=== PATIENT | male | born 1950 | race Caucasian/White ===

== ENCOUNTER 2023-06-21 15:21 | Inpatient (IN) ==
[2023-06-21] MEDS ORDERED: ONDANSETRON INJ 2 MG/ML 2 ML VIAL IV STA (15:51)
[2023-06-21] MEDS ORDERED: SODIUM CHLORIDE 0.9% 1000ML 1,000 ML IV ONE ×2 (15:51→20:19)
[2023-06-21] MEDS ORDERED: MoRPHine SULFATE 4 MG/ML 1 ML CARP\\VIAL IV STA ×3 (15:51→21:45)
--- NOTE | 2023-06-21 16:17 | Emergency Department Note ---
Impression & Plan Diverticulitis large intestine ED Provider Note Provider: Tony Saldivar MD DATE OF SERVICE: 06/21/2023 CHIEF COMPLAINT: Lower abdominal pain, constipation HISTORY OF PRESENT ILLNESS: Patient is a 72-year-old gentleman history of GERD, previously treated hepatitis C, hypertension, CAD, emphysema presenting here today reporting over the past 8 days has been experiencing increasing pain in l eft lower quadrant with constipation issues. States has been trying to have a bowel movement but only a bit of clear liquid comes out. States low bit of blood on the toilet paper. Denies significant blood per rectum otherwise. Maybe a bit of transient nausea but no significant vomiting reported. No other upper abdominal pain the pain all in the left lower quadrant. Denies significant trauma. Has been doing some physical exertion and exercise recently. Report unfortunately given the warm weather his psoriasis and plaques are flaring. States he does not feel that he is hydrating as best as he could. Denies significant shortness of breath or chest pain. States he has had diverticulitis in the past and has had a polyp removed on colonoscopy previously. Pain is just too unbearable for him so he came here today. Was planning to talk with his doctor when they open tomorrow. Distant prior appendectomy decades ago. Patient did try a bit of manual disimpaction earlier but could not feel any firm stool in the rectal vault only reports that it felt a bit swollen. PAST MEDICAL HISTORY: As noted above MEDICATIONS: Reviewed home medications SOCIAL HISTORY: Lives at home taking care of granddaughter PHYSICAL EXAM: GENERAL: alert and oriented in no acute distress on stretcher Head: normocephalic and atraumatic EYES: No injection, discharge or icterus. NECK: Trachea midline. ENT: Mucous membranes pink and moist. LUNGS: Airway patent. No retractions. Breath sounds clear with good air entry bilaterally. HEART: Regular rate and rhythm. No chest wall tenderness ABDOMEN: Soft with moderate tenderness in the left lower quadrant tenderness. SKIN: Acyanotic, warm, dry, with scattered areas of scaling plaques consistent with psoriasis throughout the body but particularly the low back region as well as extremities. EXTREMITIES: Without swelling, tenderness or deformity except for psoriasis plaques NEUROLOGICAL: No focal deficits. No aphasia. No facial droop or slurred speech. Ambulatory. EK bpm normal sinus rhythm. No PVC or PAC. No acute ST segment elevation or depression with QTc 454. CONTINUOUS CARDIAC MONITORING: was ordered and showed a heart rate of 70s-80s bpm in normal sinus rhythm Patient's laboratory studies and imaging reviewed. Differential includes Appendicitis, testicular torsion, infections, diverticulitis, UTI, obstruction, mesenteric ischemia, aortic pathology, inflammatory bowel disease, renal colic, PUD, pancreatitis, biliary pathology, hernia, volvulus, constipation, as well as other pathologies. IMPRESSION/MEDICAL DECISION MAKING: Patient with tenderness left lower quadrant. Constipation reported. Some blood in the toilet paper does not sound like significant GI bleeding. Prior colonoscopy appears to been just over a year ago with polyp removal at that time. On aspirin but no other blood thinners. No significant trauma reported. Basic labs obtained. Question if he is experiencing the constipation, divertic ulitis, or other bowel related pathology. This seems quite atypical for kidney stone. Denies significant other GI complaints. Seems to have fairly diffuse psoriasis but will continue to follow-up in the outpatient setting regarding this. Given some morphine here initially for pain as well as some IV fluids. EKG on troponin sent. Troponin just above normal at 22 and given symptoms I doubt this is ACS and seems more chronic. No evidence of hepatitis or pancreatitis. Normal renal function. Electrolytes without significant abnormality. Blood work with leukocytosis 15.6. CT imaging per radiology with evidence of perforated diverticulitis with early abscess formation. No evidence of any distant free air/pneumoperitoneum reported. Discussed with radiology reports abscess does not appear that walled off and is may be 3-4 cm in size irregular. Discussed with general surgery Dr. Allen. Discussed with the patient with recommendation for IV antibiotics and treatment. He was agreeable for this. Hospitalist contacted. DIAGNOSIS: Perforated diverticulitis with abscess DISPOSITION: Hospitalist will evaluate Patient was agreeable with this plan. Past Med/Surg History Medical History Atherosclerosis of aorta Calculus of gallbladder without cholecystitis without obstruction Coronary artery calcification Dyslipidemia Fatty liver Hepatic steatosis Hepatitis C Hypertension Low back pain Primary osteoarthritis, unspecified site PTSD (post-traumatic stress disorder) Stricture of artery Tobacco abuse Unspecified fall Unspecified viral hepatitis C without hepatic coma Social History Smoking Status: Current every day smoker Do You Dip or Chew Tobacco: No; Hx Alcohol Use: No Hx Substance Use: No Preferred Language: [place] Feels Safe at Home: Yes Allergies Allergies Allergy/AdvReac Type Severity Reaction Status Date / Time Penicillins Allergy Intermediate Hives Verified 01/23/23 10:32 ibuprofen AdvReac Unknown HAS LIVER Verified 01/23/23 10:32 DAMAGE--AVOIDS THIS MED. Home Meds Home Medications Medication Instructions Recorded Confirmed metoprolol tartrate 50 mg tablet 50 mg PO BID 10/18/21 06/21/23 aspirin 81 mg tablet,delayed 325 mg PO DAILY 11/17/22 06/21/23 release Previous Rx's Medication Instructions Recorded amlodipine 5 mg tablet 5 mg PO DAILY #90 tabs 12/09/21 Results & Data (ED) Vital Signs Vital Signs - 24 hr 06/21/23 15:30 06/21/23 17:10 06/21/23 19:00 Temperature 36.7 C Temperature Source Temporal Artery Scan Pulse Rate 90 Pulse Rate [Left Finger] 77 77 Pulse Rhythm Regular Pulse Rhythm [Left Finger] Regular Pulse Strength Normal Pulse Strength [Left Finger] Normal Respiratory Rate 20 20 18 Respiratory Effort / Characteristics Non-Labored Spontaneous Non-Labored Respiratory Depth Normal Normal Respiratory Pattern Regular Regular Blood Pressure 144/79 H Blood Pressure [Right Arm] 160/86 H 150/67 H Blood Pressure Mean 100 Blood Pressure Mean [Right Arm] 110 94 Blood Pressure Position Sitting Blood Pressure Position [Right Arm] Lying Pulse Oximetry 98 98 97 Oxygen Delivery Method Room Air Room Air Sepsis Recent Fever Within 48 Hours No Sepsis New/Unexplained Change in Mental Status No Sepsis Action Taken by Nursing No Action Required Laboratory Data 06/21/23 16:04 06/21/23 16:04 Lab Results 06/21/23 06/21/23 06/21/23 Range/Units 16:04 16:04 16:04 WBC 15.60 H (4.8-10.8) K/ul RBC 4.36 L (4.70-6.10) M/uL Hgb 14.6 (14.0-18.0) g/dl Hct 39.9 L (42.0-52.0) % MCV 91.5 (80.0-100.0) fL MCH 33.5 (25.0-34.0) pg MCHC 36.6 H (32.0-36.0) g/dL RDW Std Deviation 40.2 (36.4-46.3) fL RDW Coeff of Mya 12.0 (11.5-14.5) % Plt Count 194 (130-400) K/uL MPV 10.4 (9.4-12.4) fL Immature Gran % (Auto) 0.4 % Neut % (Auto) 84.2 % Lymph % (Auto) 8.3 % Butler % (Auto) 6.5 % Eos % (Auto) 0.3 % Baso % (Auto) 0.3 % Neut # (Auto) 13.12 H (1.40-6.50) K/uL Lymph # (Auto) 1.30 (1.2-3.4) K/uL Butler # (Auto) 1.02 H (0.11-0.59) K/uL Eos # (Auto) 0.05 (0-0.50) K/uL Baso # (Auto) 0.04 (0-0.2) K/uL Immature Gran # (Auto) 0.07 (0.01-0.20) K/uL PT 11.0 (9.0-12.0) Seconds INR 1.0 (0.9-1.1) Sodium 135 L (136-145) mmol/L Potassium 3.9 (3.5-5.1) mmol/L Chloride 103 (98-107) mmol/L Carbon Dioxide 25 (21-32) mmol/L Anion Gap 7 (3-11) BUN 15 (6-23) mg/dl Creatinine 1.00 (0.6-1.4) mg/dl Est Cr Clr Drug Dosing 67.8 ml/min Est GFR ( Amer) 87.4 ml/min Est GFR (Non-Af Amer) 75.4 ml/min BUN/Creatinine Ratio 15.0 (10-20) Glucose 116 H (70-99(Fasting)) mg/dl Calcium 9.4 (8.6-10.3) mg/dl Total Bilirubin 0.8 (0.2-1.0) mg/dl AST 25 (13-39) U/L ALT 30 (7-52) U/L Alkaline Phosphatase 84 (34-104) U/L Troponin I High Sens 22.0 H (0-20) pg/ml Total Protein 7.7 (6.0-8.3) gm/dl Albumin 4.0 (3.4-5.0) gm/dl Globulin 3.7 (2.5-4.0) gm/dl Albumin/Globulin Ratio 1.1 (0.9-2) Lipase 4 L (11-82) U/L Urine Color Urine Appearance (Clear) Urine pH (4.5-7.5) Ur Specific [place] (1.000-1.030) Urine Protein (Negative) Urine Glucose (UA) (Negative) Urine Ketones (Negative) Urine Blood (Negative) Urine Nitrite (Negative) Urine Bilirubin (Negative) Urine Urobilinogen (Negative) Ur Leukocyte Esterase (Negative) 06/21/23 06/21/23 Range/Units 18:38 19:03 WBC (4.8-10.8) K/ul RBC (4.70-6.10) M/uL Hgb (14.0-18.0) g/dl Hct (42.0-52.0) % MCV (80.0-100.0) fL MCH (25.0-34.0) pg MCHC (32.0-36.0) g/dL RDW Std Deviation (36.4-46.3) fL RDW Coeff of Mya (11.5-14.5) % Plt Count (130-400) K/uL MPV (9.4-12.4) fL Immature Gran % (Auto) % Neut % (Auto) % Lymph % (Auto) % Butler % (Auto) % Eos % (Auto) % Baso % (Auto) % Neut # (Auto) (1.40-6.50) K/uL Lymph # (Auto) (1.2-3.4) K/uL Butler # (Auto) (0.11-0.59) K/uL Eos # (Auto) (0-0.50) K/uL Baso # (Auto) (0-0.2) K/uL Immature Gran # (Auto) (0.01-0.20) K/uL PT (9.0-12.0) Seconds INR (0.9-1.1) Sodium (136-145) mmol/L Potassium (3.5-5.1) mmol/L Chloride (98-107) mmol/L Carbon Dioxide (21-32) mmol/L Anion Gap (3-11) BUN (6-23) mg/dl Creatinine (0.6-1.4) mg/dl Est Cr Clr Drug Dosing ml/min Est GFR ( Amer) ml/min Est GFR (Non-Af Amer) ml/min BUN/Creatinine Ratio (10-20) Glucose (70-99(Fasting)) mg/dl Calcium (8.6-10.3) mg/dl Total Bilirubin (0.2-1.0) mg/dl AST (13-39) U/L ALT (7-52) U/L Alkaline Phosphatase (34-104) U/L Troponin I High Sens 17.9 D (0-20) pg/ml Total Protein (6.0-8.3) gm/dl Albumin (3.4-5.0) gm/dl Globulin (2.5-4.0) gm/dl Albumin/Globulin Ratio (0.9-2) Lipase (11-82) U/L Urine Color Yellow Urine Appearance Clear (Clear) Urine pH 5.5 (4.5-7.5) Ur Specific [place] 1.042 H (1.000-1.030) Urine Protein Negative (Negative) Urine Glucose (UA) Negative (Negative) Urine Ketones Negative (Negative) Urine Blood Negative (Negative) Urine Nitrite Negative (Negative) Urine Bilirubin Negative (Negative) Urine Urobilinogen Negative (Negative) Ur Leukocyte Esterase Negative (Negative) Administered Medications Sodium Chloride (Nss 1000ml) 1,000 mls @ 999 mls/hr IV .Q1H1M ONE Stop: 06/21/23 21:19 Last Admin: 06/21/23 20:25 Dose: 999 mls/hr Documented By: ALFONSO Discontinued Medications Sodium Chloride (Nss 1000ml) 1,000 mls @ 999 mls/hr IV .Q1H1M ONE Stop: 06/21/23 16:51 Last Admin: 06/21/23 15:58 Dose: 999 mls/hr Documented By: NELLY Ciprofloxacin (Cipro / D5w) 400 mg in 200 mls @ 200 mls/hr IV NOW STA Stop: 06/21/23 19:45 Last Admin: 06/21/23 20:03 Dose: 200 mls/hr Documented By: ALFONSO Ioversol (Optiray 320 100ml) 94 ml IV ONCE ONE Stop: 06/21/23 16:49 Last Admin: 06/21/23 16:49 Dose: 94 ml Documented By: HALLE Morphine Sulfate (Morphine Sulfate 4 Mg/Ml 1 Ml Carp\Vial) 4 mg IV NOW STA Stop: 06/21/23 15:52 Last Admin: 06/21/23 15:58 Dose: 4 mg Documented By: NELLY Morphine Sulfate (Morphine Sulfate 4 Mg/Ml 1 Ml Carp\Vial) 4 mg IV NOW STA Stop: 06/21/23 20:19 Last Admin: 06/21/23 20:24 Dose: 4 mg Documented By: ALFONSO Ondansetron HCl (Ondansetron Inj 2 Mg/Ml 2 Ml Vial) 4 mg IV NOW STA Stop: 06/21/23 15:52 Last Admin: 06/21/23 15:58 Dose: 4 mg Documented By: NELLY Imaging Data Radiologist's Impression: Abdomen/Pelvis CT 06/21/23 15:38 CT abd pelvis IV con only CLINICAL HISTORY: LLQ pain, constipation TECHNIQUE: Helical axial images of the abdomen and pelvis were obtained and displayed. Automated dose lowering techniques and/or adjustment according to patient size were utilized for this exam. This exam was performed with intravenous contrast. CT DOSE: 977.74 mGy.cm COMPARISON: Comparison is made to CT abdomen pelvis 10/02/2021 FINDINGS: Lower chest: No acute abnormality. Liver: Unremarkable. No focal lesions are seen. Gallbladder and biliary tree: Cholelithiasis is seen without evidence of cholecystitis. No intra- or extrahepatic biliary ductal dilation. Pancreas: Unremarkable, no focal lesions. Spleen: Unremarkable. Adrenals: Unremarkable. Kidneys and ureters: Unremarkable. Bladder: Limited evaluation due to underdistention. Reproductive organs: Unremarkable. Bowel: Numerous diverticula are seen in the sigmoid colon. There is prominent wall thickening and surrounding fat stranding. There is an adjacent fluid collection. Lymph nodes Retroperitoneal: Unremarkable. Pelvic: Unremarkable. Mesenteric: Unremarkable. Peritoneum: Fluid collection is seen adjacent to the sigmoid colon extending well outside the colonic contours, with partial enhancing baugh. No distant pneumoperitoneum is seen. Vessels: Atherosclerotic calcifications are seen. Abdominal wall: A fat-containing umbilical hernia is seen. Bones: Compression deformity of T12 is new from prior exam. IMPRESSION: Findings are compatible with perforated diverticulitis with early abscess f ormation. No distant air is seen. ACT 112: Negative or not required by law. Electronically signed by: Steven Higginbotham M.D. 06/21/2023 5:19 PM Discharge Plan Visit Data Chief Complaint: GI Assessment Stated Complaint: DIVERTICULITIS FLARE, CONSTIPATION, ABDOMINAL PAIN ED Provider: Tony Saldivar Discharge Problem: Diverticulitis large intestine Patient Disposition: Being Evaluated by Hospitalist Forms Stand Alone Forms: [facility] Prescriptions Prescriptions: No Action amlodipine 5 mg tablet 5 mg PO DAILY Qty: 90 3RF aspirin 81 mg tablet,delayed release (DR/EC) 325 mg PO DAILY metoprolol tartrate 50 mg tablet 50 mg PO BID Referrals Referrals: Kendall Piedra CRNP [Primary Care Provider] - Diverticulitis large intestine Qualifiers: Diverticulitis bleeding: without bleeding Diverticulitis complication: with perforation and abscess Qualified Code(s): K57.20 - Diverticulitis of large intestine with perforation and abscess without bleeding
[2023-06-21 16:27] LABS: Basophils # (auto) 0.04 K/uL (0-0.2); Basophils % (auto) 0.3 %; Eosinophils # (auto) 0.05 K/uL (0-0.50); Eosinophils % (auto) 0.3 %; Hematocrit (blood only) 39.9 % (42.0-52.0); Hemoglobin 14.6 g/dl (14.0-18.0); Immature Granulocytes # (auto) 0.07 K/uL (0.01-0.20); Immature Granulocytes % (auto) 0.4 %; Lymphocytes % (auto) 8.3 %; Mean Corpuscular Hemoglobin 33.5 pg (25.0-34.0); Mean Corpuscular Hgb Conc 36.6 g/dL (32.0-36.0); Mean Corpuscular Volume 91.5 fL (80.0-100.0); Mean Platelet Volume 10.4 fL (9.4-12.4); Monocytes # (auto) 1.02 K/uL (0.11-0.59); Monocytes % (auto) 6.5 %; Neutrophils # (auto) 13.12 K/uL (1.40-6.50); Neutrophils % (auto) 84.2 %; Platelet Count 194 K/uL (130-400); RDW Standard Deviation 40.2 fL (36.4-46.3); Red Blood Count 4.36 M/uL (4.70-6.10)
[2023-06-21 16:35] LABS: Albumin Globulin Ratio 1.1 (0.9-2); Bilirubin,Total 0.8 mg/dl (0.2-1.0); Calcium 9.4 mg/dl (8.6-10.3); Creatinine Clr Calc Pharmacy 67.8 ml/min; Est GFR (African American) 87.4 ml/min; Est GFR (Non-African American) 75.4 ml/min; Globulin 3.7 gm/dl (2.5-4.0); Potassium 3.9 mmol/L (3.5-5.1); Total Protein 7.7 gm/dl (6.0-8.3)
[2023-06-21] MEDS ORDERED: OPTIRAY 320 100ml IV ONE (16:48)
--- NOTE | 2023-06-21 17:21 | CT Scan Report ---
CT abd pelvis IV con only CLINICAL HISTORY: LLQ pain, constipation TECHNIQUE: Helical axial images of the abdomen and pelvis were obtained and displayed. Automated dose lowering techniques and/or adjustment according to patient size were utilized for this exam. This e xam was performed with intravenous contrast. CT DOSE: 977.74 mGy.cm COMPARISON: Comparison is made to CT abdomen pelvis 10/02/2021 FINDINGS: Lower chest: No acute abnormality. Liver: Unremarkable. No focal lesions are seen. Gallbladder and biliary tree: Cholelithiasis is seen without evidence of cholecystitis. No intra- or extrahepatic biliary ductal dilation. Pancreas: Unremarkable, no focal lesions. Spleen: Unremarkable. Adrenals: Unremarkable. Kidneys and ureters: Unremarkable. Bladder: Limited evaluation due to underdistention. Reproductive organs: Unremarkable. Bowel: Numerous diverticula are seen in the sigmoid colon. There is prominent wall thickening and mimi rounding fat stranding. There is an adjacent fluid collection. Lymph nodes Retroperitoneal: Unremarkable. Pelvic: Unremarkable. Mesenteric: Unremarkable. Peritoneum: Fluid collection is seen adjacent to the sigmoid colon extending well outside the colonic contours, with partial enhancing baugh. No distant pneumoperitoneum is seen. Vessels: Atherosclerotic calcifications are seen. Abdominal wall: A fat-containing umbilical hernia is seen. Bones: Compression deformity of T12 is new from prior exam. IMPRESSION: Findings are compatible with perforated diverticulitis with early abscess formation. No distant air i s seen. ACT 112: Negative or not required by law. Electronically signed by: Steven Higginbotham M.D. 06/21/2023 5:19 PM
[2023-06-21] MEDS ORDERED: CIPROFLOXACIN / D5W 400 MG/200 ML BAG IV STA (18:46)
[2023-06-21] MEDS ORDERED: metroNIDAZOLE 500 MG/100 ML BAG IV STA ×2 (18:46→22:18)
[2023-06-21 18:50] LABS: Appearance Urine Clear (Clear); Bilirubin Urine Negative (Negative); Blood Urine Negative (Negative); Color Urine Yellow; Glucose Urine UA Negative (Negative); Ketones Urine Negative (Negative); Leukocyte Esterase Urine Negative (Negative); Nitrite Urine Negative (Negative); Protein Urine Negative (Negative); Specific Gravity Urine 1.042 (1.000-1.030); Urobilinogen Urine Negative (Negative); pH Urine 5.5 (4.5-7.5)
--- NOTE | 2023-06-21 19:56 | History & Physical Report ---
Date of Service June 21, 2023 Assessment & Plan (1) Diverticulitis of intestine with perforation and abscess: Plan: 72yo male with known diverticulosis presenting with 8 days of abdominal pain, acute worsening over the last 2 days. Constipation, nausea and chills. Found to have perforated diverticulitis with early abscess formation. No distant air is seen. He is afebrile, HD stable and nontoxic in appearance. WBC=15.6 Abdomen is soft and non-distended, tender in the LLQ without peritonitis. -Admit to medical with telemetry -Keep NPO -IV antibiotics with Ciprofloxacin 400mg IV BID and Flagyl 500mg IV q 8 -LR at 125mL/hr x 2L -Morphine PRN pain -Zofran PRN nausea -Appreciate General Surgery consultation (2) Essential hypertension: Plan: Blood pressure mildly elevated -Pain control -Continue metoprolol 50mg po BID -Continue Amlodipine 5mg po daily (3) Atherosclerosis of aorta: Plan: Patient denies chest pain -Hold ASA 325mg daily for now F/E/N - LR at 125mL/hr x 2 liters, electrolytes WNL, NPO for now Ppx - lovenox Code - Full Dispo -Admit to medical with telemetry History of Present Illness Chief Complaint: LLQ abdominal pain Primary Care Provider: BAILEE Grant Kristian Florence is a 72yo male with history of HTN, HLP, HCV s/p treatment, GERD and CAD presenting with LLQ abdominal pain. Patient has known diverticulosis - has never had a diverticular bleed or diverticulitis to his knowledge. He presents to the ER this evening with complaint of LLQ abdominal pain ongoing x 8 days. The pain is severe, worse with movement and trying to have a bowel movement. Has acutely worsened over the last 2 days. Patient reports constipation - no BM x 8 days as well as nausea and some chills. He did have some bright red blood on the toilet paper today after attempting a manual disimpaction. He denies fever, vomiting, melena. No additional complaints at this time - patient denies chest pain, cough or SOB In the ER he is afebrile, HD stable and nontoxic in appearance. 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 Recommended high fiber diet, Miralax 17gm daily and followup colonoscopy in 2 years. ER Course: NSS x 2L Morphine 4mg IV x 3 Zofran 4mg IV CIprofloxacin 400mg IV Flagyl 500mg IV Allergies Allergy/AdvReac Type Severity Reaction Status Date / Time Penicillins Allergy Intermediate Hives Verified 01/23/23 10:32 ibuprofen AdvReac Unknown HAS LIVER Verified 01/23/23 10:32 DAMAGE--AVOIDS THIS MED. Home Medications Medication Instructions Recorded Confirmed Type metoprolol tartrate 50 mg tablet 50 mg PO BID 10/18/21 06/21/23 History amlodipine 5 mg tablet 5 mg PO DAILY #90 tabs 12/09/21 06/21/23 Rx aspirin 81 mg tablet,delayed 325 mg PO DAILY 11/17/22 06/21/23 History release Past Med/Surg History Medical History (Updated 06/21/23 @ 21:56 by Rosita Mcclelland DO) Atherosclerosis of aorta Calculus of gallbladder without cholecystitis without obstruction Coronary artery calcification Dyslipidemia Fatty liver Hepatic steatosis Hepatitis C Hypertension Low back pain Primary osteoarthritis, unspecified site PTSD (post-traumatic stress disorder) Stricture of artery Tobacco abuse Social History Smoking Status: Current every day smoker Do You Dip or Chew Tobacco: No; Hx Alcohol Use: No Hx Substance Use: No Preferred Language: Bulgarian Feels Safe at Home: Yes Review of Systems Review of Systems: All systems reviewed & are unremarkable except as noted in HPI & below Physical Exam Physical Exam: General: patient resting comfortably, NAD, non-toxic in appearance, AA&O x 4 Skin: warm, dry, intact, no rashes or lesions HEENT: NC/AT, PERRL, EOMI, anicteric sclera, conjunctiva without injection, external ear normal to inspection and nontender, nares patent, moist mucus membranes, dentition intact, no oropharyngeal lesions, neck supple, trachea midline, no LAD, no thyromegaly, no JVD Heart: +S1/S2, regular, no m/r/g Lungs: equal air entry bilaterally, no rales/rhonchi/wheezes Abd: +BS, soft, ND, tenderness in the LLQ with some voluntary guarding, no masses/organomegaly/ascites Ext: warm, 2+ pulses in UE/LE bilaterally, no clubbing/cyanosis or edema Neuro: nonfocal, patient AA&O x 4, speech intact, no facial droop, moving all extremities on command with equal strength 5/5 Results & Data Results & Data Vital Signs (Past 12 Hours) Vital Signs Temp Pulse Pulse Resp BP BP Pulse Ox 06/21/23 17:10 77 20 160/86 H 98 06/21/23 15:30 36.7 C 90 20 144/79 H 98 O2 Del Method 06/21/23 17:10 06/21/23 15:30 Room Air Laboratory Results Laboratory Results WBC 15.60 K/ul (4.8-10.8) H 06/21/23 16:04 RBC 4.36 M/uL (4.70-6.10) L 06/21/23 16:04 Hgb 14.6 g/dl (14.0-18.0) 06/21/23 16:04 Hct 39.9 % (42.0-52.0) L 06/21/23 16:04 MCV 91.5 fL (80.0-100.0) 06/21/23 16:04 MCH 33.5 pg (25.0-34.0) 06/21/23 16:04 MCHC 36.6 g/dL (32.0-36.0) H 06/21/23 16:04 RDW Std Deviation 40.2 fL (36.4-46.3) 06/21/23 16:04 RDW Coeff of Mya 12.0 % (11.5-14.5) 06/21/23 16:04 Plt Count 194 K/uL (130-400) 06/21/23 16:04 MPV 10.4 fL (9.4-12.4) 06/21/23 16:04 Immature Gran % (Auto) 0.4 % 06/21/23 16:04 Neut % (Auto) 84.2 % 06/21/23 16:04 Lymph % (Auto) 8.3 % 06/21/23 16:04 [place] % (Auto) 6.5 % 06/21/23 16:04 Eos % (Auto) 0.3 % 06/21/23 16:04 Baso % (Auto) 0.3 % 06/21/23 16:04 Neut # (Auto) 13.12 K/uL (1.40-6.50) H 06/21/23 16:04 Lymph # (Auto) 1.30 K/uL (1.2-3.4) 06/21/23 16:04 [place] # (Auto) 1.02 K/uL (0.11-0.59) H 06/21/23 16:04 Eos # (Auto) 0.05 K/uL (0-0.50) 06/21/23 16:04 Baso # (Auto) 0.04 K/uL (0-0.2) 06/21/23 16:04 Immature Gran # (Auto) 0.07 K/uL (0.01-0.20) 06/21/23 16:04 PT 11.0 Seconds (9.0-12.0) 06/21/23 16:04 INR 1.0 (0.9-1.1) 06/21/23 16:04 Sodium 135 mmol/L (136-145) L 06/21/23 16:04 Potassium 3.9 mmol/L (3.5-5.1) 06/21/23 16:04 Chloride 103 mmol/L (98-107) 06/21/23 16:04 Carbon Dioxide 25 mmol/L (21-32) 06/21/23 16:04 Anion Gap 7 (3-11) 06/21/23 16:04 BUN 15 mg/dl (6-23) 06/21/23 16:04 Creatinine 1.00 mg/dl (0.6-1.4) 06/21/23 16:04 Est Cr Clr Drug Dosing 67.8 ml/min 06/21/23 16:04 Est GFR ( Amer) 87.4 ml/min 06/21/23 16:04 Est GFR (Non-Af Amer) 75.4 ml/min 06/21/23 16:04 BUN/Creatinine Ratio 15.0 (10-20) 06/21/23 16:04 Glucose 116 mg/dl (70-99(Fasting)) H 06/21/23 16:04 Calcium 9.4 mg/dl (8.6-10.3) 06/21/23 16:04 Total Bilirubin 0.8 mg/dl (0.2-1.0) 06/21/23 16:04 AST 25 U/L (13-39) 06/21/23 16:04 ALT 30 U/L (7-52) 06/21/23 16:04 Alkaline Phosphatase 84 U/L (34-104) 06/21/23 16:04 Troponin I High Sens 17.9 pg/ml (0-20) D 06/21/23 19:03 Total Protein 7.7 gm/dl (6.0-8.3) 06/21/23 16:04 Albumin 4.0 gm/dl (3.4-5.0) 06/21/23 16:04 Globulin 3.7 gm/dl (2.5-4.0) 06/21/23 16:04 Albumin/Globulin Ratio 1.1 (0.9-2) 06/21/23 16:04 Lipase 4 U/L (11-82) L 06/21/23 16:04 Urine Color Yellow 06/21/23 18:38 Urine Appearance Clear (Clear) 06/21/23 18:38 Urine pH 5.5 (4.5-7.5) 06/21/23 18:38 Ur Specific [place] 1.042 (1.000-1.030) H 06/21/23 18:38 Urine Protein Negative (Negative) 06/21/23 18:38 Urine Glucose (UA) Negative (Negative) 06/21/23 18:38 Urine Ketones Negative (Negative) 06/21/23 18:38 Urine Blood Negative (Negative) 06/21/23 18:38 Urine Nitrite Negative (Negative) 06/21/23 18:38 Urine Bilirubin Negative (Negative) 06/21/23 18:38 Urine Urobilinogen Negative (Negative) 06/21/23 18:38 Ur Leukocyte Esterase Negative (Negative) 06/21/23 18:38 Impressions Abdomen/Pelvis CT 06/21/23 15:38 CT abd pelvis IV con only CLINICAL HISTORY: LLQ pain, constipation TECHNIQUE: Helical axial images of the abdomen and pelvis were obtained and displayed. Automated dose lowering techniques and/or adjustment according to patient size were utilized for this exam. This exam was performed with intravenous contrast. CT DOSE: 977.74 mGy.cm COMPARISON: Comparison is made to CT abdomen pelvis 10/02/2021 FINDINGS: Lower chest: No acute abnormality. Liver: Unremarkable. No focal lesions are seen. Gallbladder and biliary tree: Cholelithiasis is seen without evidence of cholecystitis. No intra- or extrahepatic biliary ductal dilation. Pancreas: Unremarkable, no focal lesions. Spleen: Unremarkable. Adrenals: Unremarkable. Kidneys and ureters: Unremarkable. Bladder: Limited evaluation due to underdistention. Reproductive organs: Unremarkable. Bowel: Numerous diverticula are seen in the sigmoid colon. There is prominent wall thickening and surrounding fat stranding. There is an adjacent fluid collection. Lymph nodes Retroperitoneal: Unremarkable. Pelvic: Unremarkable. Mesenteric: Unremarkable. Peritoneum: Fluid collection is seen adjacent to the sigmoid colon extending well outside the colonic contours, with partial enhancing baugh. No distant pneumoperitoneum is seen. Vessels: Atherosclerotic calcifications are seen. Abdominal wall: A fat-containing umbilical hernia is seen. Bones: Compression deformity of T12 is new from prior exam. IMPRESSION: Findings are compatible with perforated diverticulitis with early abscess formation. No distant air is seen. ACT 112: Negative or not required by law. Electronically signed by: Steven Higginbotham M.D. 06/21/2023 5:19 PM ECG Additional Comments: EKG per my interpretation shows NSR at 80bpm, normal axis, DC=691, QRS=82, GYx=461, no acute ischemic changes, poor R wave progression PG Care Time/CCT Total # of Minutes Spent Total Time Spent with Patient: Total time spent is greater than 50% in coordination of care (as documented) at patient's floor/unit and/or counseling patient: Coding Level of Care Code 88943 INT INP/OBS CARE 2/55MIN Diagnoses Diverticulitis of intestine with perforation and abscess K57.80 Essential hypertension I10 Atherosclerosis of aorta I70.0
--- NOTE | 2023-06-21 19:58 | Surgery Consultation ---
Date of Consultation June 21, 2023 Assessment & Plan (1) Diverticulitis large intestine: The patient is being admitted on the hospitalist service. We recommend proceeding as follows: Provide analgesics Provide antiemetics Provide IV fluid for hydration Follow serial labs Patient should be kept on broad-spectrum antibiotics. He has received Cipro and Flagyl in the emergency department and this should continue. Implement n.p.o. status. I discussed with the patient that consideration can be given to advancing his diet beginning with clear liquids when he has return of bowel function and improvement of his clinical exam and labs. I discussed with the patient the above treatment plan I discussed with the patient that be preferable to avoid emergent operation. I do not feel the patient requires an urgent operation as he is normotensive without tachycardia or fever. He also does not appear to have an acute abdomen at this time. I did discuss with the patient that if he would require an emergency operation it would likely require a colostomy and he wishes to avoid this. I discussed with the patient that if he were to undergo surgical intervention will be best to treat his acute diverticulitis without surgical intervention so that if he would require surgery for this in the future an appropriate bowel prep could be undertaken. I also discussed with the patient that if it appears that he has a worsening intra-abdominal abscess consideration be given to having this drained percutaneously by our interventional radiology colleagues. It is yet to be determined if this will be necessary. Additional recommendations be forthcoming based on his clinical course as it unfolds History of Present Illness Reason for Consultation: Diverticulitis History of Present Illness This is a 72-year-old male who presented to the emergency department this evening secondary to abdominal pain. The patient says that he has suffered from diverticulitis in the past usually having an attack of diverticulitis usually once per year. The patient says he was never hospitalized for this problem. Patient says that he began to have abdominal pain which is located in the left lower quadrant about 2 weeks ago. As the patient has had this problem before he backed his diet down to clear liquids. He has not tried any antibiotics. He notes despite this intervention he continues to have pain and the pain started getting worse today. Today the pain is located in the left lower quadrant and is nonradiating. He has had nausea without vomiting. He is unsure if he has had any fevers. He denies any dysuria. He does not note any palliative or provocative factors to the pain. Patient says that he has had a colonoscopy in the past. His records were reviewed and he did have a colonoscopy on 06/03/2022 where patient was noted to have a sessile polyp of the cecum that was noted to be benign. He was also found to have internal hemorrhoids and moderate diverticulosis of the colon.. To the best of his knowledge this was noncancerous. He does note that his most recent bowel movement was approximately 7 days ago. He denies any bright blood per rectum or melena. He has had previous abdominal surgery in the form of an appendectomy. Since arrival to the hospital the patient has had labs and imaging which I independent reviewed. Patient had a CT scan of the abdomen pelvis that showed a fluid collection adjacent to the sigmoid colon extending outside the colonic contours. No distinct pneumoperitoneum was noted. The interpreting radiologist felt these findings were compatible with perforated diverticulitis with possible early abscess formation. Labs include a CBC her white blood cell count was elevated 15.6. Hemoglobin and hematocrit 14.6 and 39.9. Platelet count was normal. Coagulation studies were normal. Chemistry profile showed sodium was 135 with a normal potassium, normal BUN, normal creatinine. There is no elevation of patient's LFTs. A urinalysis was not indicative of infection. An EKG showed normal sinus rhythm. There did not appear to be any changes indicative of acute ischemia. At the time of my interview the patient was resting comfortably in bed and he was in no distress. Allergies Allergy/AdvReac Type Severity Reaction Status Date / Time Penicillins Allergy Intermediate Hives Verified 01/23/23 10:32 ibuprofen AdvReac Unknown HAS LIVER Verified 01/23/23 10:32 DAMAGE--AVOIDS THIS MED. Home Medications Medication Instructions Recorded Confirmed Type metoprolol tartrate 50 mg tablet 50 mg PO BID 10/18/21 06/21/23 History amlodipine 5 mg tablet 5 mg PO DAILY #90 tabs 12/09/21 06/21/23 Rx aspirin 81 mg tablet,delayed 325 mg PO DAILY 11/17/22 06/21/23 History release Patient History Medical History (Updated 06/21/23 @ 21:56 by Rosita Mcclelland DO) Atherosclerosis of aorta Calculus of gallbladder without cholecystitis without obstruction Coronary artery calcification Dyslipidemia Fatty liver Hepatic steatosis Hepatitis C Hypertension Low back pain Primary osteoarthritis, unspecified site PTSD (post-traumatic stress disorder) Stricture of artery Tobacco abuse Social History Smoking Status: Current every day smoker Do You Dip or Chew Tobacco: No; Hx Alcohol Use: No Hx Substance Use: No Preferred Language: Lithuanian Feels Safe at Home: Yes Review of Systems Constitutional: no fever and no chills Eyes: + corrective lenses Ear, Nose, Mouth, Throat: no hearing loss Respiratory: no cough and no dyspnea Cardiovascular: no chest pain Gastrointestinal: as per Subjective / HPI Genitourinary: no dysuria Musculoskeletal: no back pain Integumentary: + rash Neurologic: no localized weakness Physical Exam Physical Exam: Multiple tattoos were noted on patient's posterior scalp Constitutional: WD/WN, vitals as above Eyes: no conjunctival abnormality ENMT: Ears: no hearing impairment and no external ear abnormality Mouth: no oropharynx abnormality Neck: trachea midline Respiratory: normal respiratory effort; no respiratory distress and no labored breathing Cardiovascular: Rate/Rhythm: regular rate and regular rhythm Vessels: posterior tibial pulses present and radial pulses present Gastrointestinal (Abdomen): Abdomen is soft and nonrigid. It is mildly distended. Patient did have pain with palpation in the left lower quadrant. Slight rebound tenderness was noted. There is no guarding. I did not appreciate any hernias on exam. Musculoskeletal: No calf tenderness Skin: no rashes Neurologic: moves all extremities Psychiatric: A+Ox3, euthymic affect Results & Data Vital Signs (Past 12 Hours) Vital Signs Temp Pulse Pulse Resp BP BP Pulse Ox 06/21/23 17:10 77 20 160/86 H 98 06/21/23 15:30 36.7 C 90 20 144/79 H 98 O2 Del Method 06/21/23 17:10 06/21/23 15:30 Room Air PG Care Time/CCT Total # of Minutes Spent Total Time Spent with Patient: Total time spent is greater than 50% in coordination of care (as documented) at patient's floor/unit and/or counseling patient: Coding Level of Care Code 40327 INT INP/OBS CARE 375MIN Diagnoses Diverticulitis large intestine K57.20 Diverticulitis bleeding: without bleeding Diverticulitis complication: with perforation and abscess (1) Diverticulitis large intestine Diverticulitis bleeding: without bleeding Diverticulitis complication: with perforation and abscess Qualified Code(s): K57.20 - Diverticulitis of large intestine with perforation and abscess without bleeding
[2023-06-21] MEDS ORDERED: ONDANSETRON INJ 2 MG/ML 2 ML VIAL IV PRN (22:27)
[2023-06-21] MEDS ORDERED: MoRPHine SULFATE 2 MG/ML CARP IV PRN (22:27)
[2023-06-21] MEDS ORDERED: ACETAMINOPHEN 325 MG TAB PO PRN (22:27)
[2023-06-21] MEDS: METOPROLOL TARTRATE 50 MG TAB PO SCH (23:21)
[2023-06-22 04:19] LABS: Hematocrit (blood only) 35.7 % (42.0-52.0); Hemoglobin 13.2 g/dl (14.0-18.0); Mean Corpuscular Hemoglobin 33.7 pg (25.0-34.0); Mean Corpuscular Volume 91.1 fL (80.0-100.0); Mean Platelet Volume 10.5 fL (9.4-12.4); Platelet Count 165 K/uL (130-400); RDW Coefficient of Variation 12.1 % (11.5-14.5); RDW Standard Deviation 39.8 fL (36.4-46.3); Red Blood Count 3.92 M/uL (4.70-6.10); White Blood Count 10.42 K/ul (4.8-10.8)
[2023-06-22 04:35] LABS: BUN Creatinine Ratio 13.7 (10-20); Calcium 8.6 mg/dl (8.6-10.3); Creatinine Clr Calc Pharmacy 71.3 ml/min; Est GFR (Non-African American) 80.2 ml/min; Potassium 4.2 mmol/L (3.5-5.1)
[2023-06-22] MEDS: LACTATED RINGER'S 1,000 ML IV SCH ×3 (05:13→13:44)
--- NOTE | 2023-06-22 06:37 | Hospitalist Progress Note ---
Date of Service June 22, 2023 Assessment & Plan (1) Diverticulitis of intestine with perforation and abscess: (2) Essential hypertension: (3) Atherosclerosis of aorta: Plan 72yo male with known diverticulosis presenting with 8 days of abdominal pain, acute worsening over the last 2 days. Constipation, nausea and chills. Found to have perforated diverticulitis with early abscess formation. No distant air is seen. Patient is afebrile, hemodynamically stable, and nontoxic in appearance. Abdomen is soft and nondistended, left lower quadrant tenderness. Diverticulitis of intestine with perforation and abscess -N.p.o. -IV antibiotics with Ciprofloxacin 400mg IV BID and Flagyl 500mg IV q 8 -Status post LR at 125mL/hr x 2L, will switch to LR at 75 mL/hr. -Morphine PRN pain, Zofran PRN nausea -Appreciate General Surgery consultation -Continue current antibiotic treatment, n.p.o. status until able to have a bowel movement then can start with clear liquids and advance as tolerated. -No emergent surgery needed at this time. Essential hypertension -Blood pressure mildly elevated -Pain control -Continue metoprolol 50mg po BID and amlodipine 5mg po daily Atherosclerosis of aorta -Patient denies chest pain -Hold ASA 325mg daily for now F/E/N - LR @ 75ml/hr, electrolytes WNL, NPO for now Ppx - lovenox Code - Full Dispo -Admit to medical with telemetry Admission and Anticipated Discharge Date Admission Date: June 21, 2023 Supervising Physician Co-Signing Physician Notes I personally examined the patient and verified all ulloa points of history and exam, discussed case, and agree with decision making with Dr Garcia feeling better less pain vitals noted nad heent nc at mmm breathing unlabored no accessory muscles good effort skin no rashes no pallor or icterus diverticulitis/microperforation/abscess - IV abx, supportive care, time DVT proph - lovenox Subjective Patient was seen bedside this morning. States that his pain is overall better with the morphine. Continues to have left lower quadrant pain. Patient denies recently having a bowel movement. Still states that his last bowel movement was 9 days ago. He is passing flatulence. Patient states that he was having some pain with urination specifically around his anus. However, that has mostly resolved at this time. Review of Systems Review of Systems: All systems reviewed & are unremarkable except as noted in Subjective Physical Exam Physical Exam: General: patient resting comfortably, NAD, non-toxic in appearance, AA&O x 4 Skin: warm, dry, intact, no rashes or lesions HEENT: NC/AT, PERRL, EOMI, anicteric sclera, conjunctiva without injection, external ear normal to inspection and nontender, nares patent, moist mucus membranes, dentition intact, no oropharyngeal lesions, neck supple, trachea midline, no LAD, no thyromegaly, no JVD Heart: +S1/S2, regular, no m/r/g Lungs: equal air entry bilaterally, no rales/rhonchi/wheezes Abd: +BS, soft, ND, tenderness in the LLQ with some voluntary guarding, no masses/organomegaly/ascites Ext: warm, 2+ pulses in UE/LE bilaterally, no clubbing/cyanosis or edema Neuro: nonfocal, patient AA&O x 4, speech intact, no facial droop, moving all extremities on command with equal strength 5/5 Results & Data Results & Data Vital Signs (Past 12 Hours) Vital Signs Pulse Resp BP Pulse Ox O2 Del Method 06/22/23 05:00 85 18 143/68 H 95 Room Air 06/22/23 01:00 85 20 115/77 94 Room Air 06/21/23 23:00 94 H 18 115/77 94 Room Air 06/21/23 22:21 90 Room Air 06/21/23 21:00 73 18 137/54 L 90 Room Air 06/21/23 19:00 77 18 150/67 H 97 Room Air Resident Activity Tracking Resident Involvement: Resident Care Provided Care Provided: Adult Hospital Medicine
[2023-06-22] MEDS: metroNIDAZOLE 500 MG/100 ML BAG IV SCH ×3 (07:43→21:17)
[2023-06-22] MEDS: MoRPHine SULFATE 4 MG/ML 1 ML CARP\\VIAL IV PRN ×3 (07:49→13:51)
[2023-06-22] MEDS: METOPROLOL TARTRATE 50 MG TAB PO SCH ×2 (08:14→21:07)
[2023-06-22] MEDS: amLODIPine BESYLATE 5 MG TAB PO SCH (08:14)
[2023-06-22] MEDS: ENOXAPARIN INJ 40 MG/0.4 ML SYR SQ SCH (08:14)
[2023-06-22] MEDS: CIPROFLOXACIN / D5W 400 MG/200 ML BAG IV SCH ×2 (09:14→21:05)
--- NOTE | 2023-06-22 09:14 | Surgery Progress Note ---
Date of Service June 22, 2023 Assessment & Plan (1) Diverticulitis of intestine with perforation and abscess: Plan: already some improvement. WBC down to 10. would keep NPO/IV antibiotics no current need for urgent surgical intervention Admission and Anticipated Discharge Date Admission Date: June 21, 2023 Subjective pt seen. already feeling some improvement. no new complaints. Physical Exam Constitutional: WD/WN, vitals as above no acute distress and not ill appearing Eyes: PERRL, conjunctivae normal, anicteric sclerae EOM intact bilaterally ENMT: external ear and nose normal, oropharynx normal Ears: no hearing impairment Neck: trachea midline, no thyromegaly Respiratory: normal respiratory effort; no respiratory distress and does not use accessory muscles Cardiovascular: Rate/Rhythm: regular rate and regular rhythm Gastrointestinal (Abdomen): soft. mild LLQ ttp. no peritoneal signs. Skin: no rashes, warm and dry Psychiatric: Orientation: alert, oriented x 3 and cooperative Results & Data Vital Signs (Past 12 Hours) Vital Signs Pulse Resp BP Pulse Ox O2 Del Method 06/22/23 07:55 65 18 134/66 94 Room Air 06/22/23 05:00 85 18 143/68 H 95 Room Air 06/22/23 01:00 85 20 115/77 94 Room Air 06/21/23 23:00 94 H 18 115/77 94 Room Air 06/21/23 22:21 90 Room Air PG Care Time/CCT Total # of Minutes Spent Total Time Spent with Patient: Total time spent is greater than 50% in coordination of care (as documented) at patient's floor/unit and/or counseling patient: Coding Level of Care Code 54299 SUB INP/OBS CARE 2/35MIN Diagnoses Diverticulitis of intestine with perforation and abscess K57.80
--- NOTE | 2023-06-22 14:05 | Electrocardiogram Report ---
Test Reason : Blood Pressure : / mmHG Vent. Rate : 080 BPM Atrial Rate : 080 BPM P-R Int : 172 ms QRS Dur : 082 ms QT Int : 394 ms P-R-T Axes : 067 020 024 degrees QTc Int : 454 ms Normal sinus rhythm Septal infarct , age undetermined Abnormal ECG When compared with ECG of 02-OCT-2021 22:24, Septal infarct is now Present Confirmed by Angelo Durán ([id number]) on 06/22/2023 2:04:51 PM Referred By: REFERRED SELF Confirmed By:Angelo Durán
--- NOTE | 2023-06-22 17:18 | Billing Data ---
Date of Service June 22, 2023 Coding Level of Care Code 38770 SUB INP/OBS CARE 3MIN
[2023-06-23] MEDS: LACTATED RINGER'S 1,000 ML IV SCH (02:26)
[2023-06-23] MEDS: metroNIDAZOLE 500 MG/100 ML BAG IV SCH ×3 (05:37→22:43)
[2023-06-23 07:27] LABS: BUN Creatinine Ratio 13.9 (10-20); Calcium 8.8 mg/dl (8.6-10.3); Creatinine Clr Calc Pharmacy 67.1 ml/min; Est GFR (African American) 86.3 ml/min; Est GFR (Non-African American) 74.5 ml/min; Potassium 3.9 mmol/L (3.5-5.1)
[2023-06-23 07:34] LABS: Hematocrit (blood only) 34.6 % (42.0-52.0); Hemoglobin 12.6 g/dl (14.0-18.0); Mean Corpuscular Hemoglobin 32.6 pg (25.0-34.0); Mean Corpuscular Hgb Conc 36.4 g/dL (32.0-36.0); Mean Corpuscular Volume 89.6 fL (80.0-100.0); Mean Platelet Volume 10.4 fL (9.4-12.4); Platelet Count 163 K/uL (130-400); Red Blood Count 3.86 M/uL (4.70-6.10); White Blood Count 6.44 K/ul (4.8-10.8)
--- NOTE | 2023-06-23 07:54 | Hospitalist Progress Note ---
Date of Service June 23, 2023 Assessment & Plan (1) Diverticulitis of intestine with perforation and abscess: (2) Essential hypertension: (3) Atherosclerosis of aorta: Plan 72yo male with known diverticulosis presenting with 8 days of abdominal pain, acute worsening over the last 2 days. Constipation, nausea and chills. Found to have perforated diverticulitis with early abscess formation. No distant air is seen. Patient is afebrile, hemodynamically stable, and nontoxic in appearance. Abdomen is soft and nondistended, left lower quadrant tenderness. Diverticulitis of intestine with perforation and abscess -Patient remains afebrile and leukocytosis resolved on 06/22. WBC of 6.4 on 06/23. -IV antibiotics with Ciprofloxacin 400mg IV BID and Flagyl 500mg IV q 8 -Status post LR at 125mL/hr x 2L, no fluids needed at this time. -Initially was n.p.o. Will transition to clear liquids on 06/23. -Morphine PRN pain, Zofran PRN nausea -Appreciate General Surgery consultation -No emergent surgery needed at this time. Essential hypertension -Blood pressure mildly elevated -Pain control -Continue metoprolol 50mg po BID and amlodipine 5mg po daily Atherosclerosis of aorta -Patient denies chest pain -Hold ASA 325mg daily for now F/E/N - LR @ 75ml/hr, electrolytes WNL, clear liquid Ppx - lovenox Code - Full Dispo -med/surg Admission and Anticipated Discharge Date Admission Date: June 21, 2023 Supervising Physician Co-Signing Physician Notes I personally examined the patient and verified all ulloa points of history and exam, discussed case, and agree with decision making with Dr Radha casey [facility] walking the halls vitals noted nad heent nc at mmm breathing unlabored no accessory muscles good effort skin no rashes no pallor or icterus diverticulitis/microperforation/abscess - IV abx, supportive care, time, advance diet, improving DVT proph - lovenox Subjective Patient was seen bedside this morning. States that he is no longer having any abdominal pain. Does state that he has some nausea, improved with Zofran. States that he is hungry. Of note patient states that he did try a self disimpaction about 3 days ago which did not result in any significant bowel movement. Review of Systems Review of Systems: All systems reviewed & are unremarkable except as noted in Subjective Physical Exam Physical Exam: Constitutional: well-appearing, no acute distress HEENT: NCAT, no conjunctival injection CV: regular rhythm, no murmur appreciated, extremities well-perfused, no LE edema Resp: CTABL, no wheezes/rales/rhonchi appreciated, no increased work of breathing GI: soft, nondistended, nontender, BS normoactive MSK: no gross deformities appreciated Skin: warm, dry, no rash appreciated Neuro: alert, oriented, no focal neurologic deficit appreciated Results & Data Results & Data Vital Signs (Past 12 Hours) Vital Signs Temp Pulse Pulse Resp BP Pulse Ox O2 Del Method 06/23/23 07:19 62 06/23/23 03:18 37.4 C 68 18 112/60 95 Nasal Cannula 06/22/23 23:00 68 06/22/23 23:00 37.1 C 85 16 131/58 L 94 Room Air 06/23/23 00:02 Room Air 06/22/23 20:28 37.2 C 74 20 134/48 L 96 Room Air O2 Flow Rate 06/23/23 07:19 06/23/23 03:18 2 06/22/23 23:00 06/22/23 23:00 06/23/23 00:02 06/22/23 20:28 Laboratory Results 06/23/23 06:58 06/23/23 06:58 Resident Activity Tracking Resident Involvement: Resident Care Provided Care Provided: Adult [facility] Medicine
--- NOTE | 2023-06-23 08:10 | Surgery Progress Note ---
Date of Service June 23, 2023 Assessment & Plan (1) Diverticulitis of intestine with perforation and abscess: Plan: Patient here with diverticulitis and abscess WBC normal at 6 and he is afebrile He denies any abdominal pain, + flatus, + hunger Will advance to clears and see how he fairs Continue IV abx while in house As above. Essentially pain-free at this point time with no fever and normal white count. Can advance diet and plan discharge later today or tomorrow from my standpoint. He should go home on a low residue diet and oral antibiotics. We will continue to follow along as he is in the hospital Admission and Anticipated Discharge Date Admission Date: June 21, 2023 Subjective Patient reports feeling well. Is anxious to get out of here and is not used to being "idol". He reports his pain is much improved. He is passing flatus. No nausea/vomiting. Hungry. Physical Exam Physical Exam: awake/alert, no distress Respiratory: normal respiratory effort Gastrointestinal (Abdomen): Inspection/Auscultation: abdomen not distended Percussion/Palpation: abdomen soft; abdomen nontender Results & Data Vital Signs (Past 12 Hours) Vital Signs Temp Pulse Pulse Resp BP Pulse Ox O2 Del Method 06/23/23 07:58 36.8 C 72 18 179/65 H 97 Room Air 06/23/23 07:19 62 06/23/23 03:18 37.4 C 68 18 112/60 95 Nasal Cannula 06/22/23 23:00 68 06/22/23 23:00 37.1 C 85 16 131/58 L 94 Room Air 06/23/23 00:02 Room Air 06/22/23 20:28 37.2 C 74 20 134/48 L 96 Room Air O2 Flow Rate 06/23/23 07:58 06/23/23 07:19 06/23/23 03:18 2 06/22/23 23:00 06/22/23 23:00 06/23/23 00:02 06/22/23 20:28 PG Care Time/CCT Total # of Minutes Spent Total Time Spent with Patient: Total time spent is greater than 50% in coordination of care (as documented) at patient's floor/unit and/or counseling patient: Coding Level of Care Code 93824 SUB INP/OBS CARE Diagnoses Diverticulitis of intestine with perforation and abscess K57.80
[2023-06-23] MEDS: amLODIPine BESYLATE 5 MG TAB PO SCH (08:52)
[2023-06-23] MEDS: CIPROFLOXACIN / D5W 400 MG/200 ML BAG IV SCH ×2 (08:52→20:25)
[2023-06-23] MEDS: ENOXAPARIN INJ 40 MG/0.4 ML SYR SQ SCH (08:52)
[2023-06-23] MEDS: METOPROLOL TARTRATE 50 MG TAB PO SCH ×2 (08:52→19:55)
--- NOTE | 2023-06-23 18:13 | Billing Data ---
Date of Service June 23, 2023 Coding Level of Care Code 61169 SUB INP/OBS CARE
[2023-06-23] MEDS ORDERED: MELATONIN 3 MG TAB PO ONE (20:19)
[2023-06-24] MEDS: metroNIDAZOLE 500 MG/100 ML BAG IV SCH (05:05)
--- NOTE | 2023-06-24 07:37 | Hospitalist Progress Note ---
Date of Service June 24, 2023 Assessment & Plan (1) Diverticulitis of intestine with perforation and abscess: (2) Essential hypertension: (3) Atherosclerosis of aorta: Plan 72yo male with known diverticulosis presenting with 8 days of abdominal pain, acute worsening over the last 2 days. Constipation, nausea and chills. Found to have perforated diverticulitis with early abscess formation. No distant air is seen. Patient is afebrile, hemodynamically stable, and nontoxic in appearance. Abdomen is soft and nondistended, left lower quadrant tenderness. Diverticulitis of intestine with perforation and abscess -Patient remains afebrile and leukocytosis resolved on 06/22. WBC of 6.4 on 06/23. -IV antibiotics with Ciprofloxacin 400mg IV BID and Flagyl 500mg IV q 8 -Status post LR at 125mL/hr x 2L, no fluids needed at this time. -Initially was n.p.o. Will transition to clear liquids on 06/23. -Morphine PRN pain, Zofran PRN nausea -Appreciate General Surgery consultation -No emergent surgery needed at this time. Essential hypertension -Blood pressure mildly elevated -Pain control -Continue metoprolol 50mg po BID and amlodipine 5mg po daily Atherosclerosis of aorta -Patient denies chest pain -Hold ASA 325mg daily for now F/E/N - LR @ 75ml/hr, electrolytes WNL, clear liquid Ppx - lovenox Code - Full Dispo -med/surg Admission and Anticipated Discharge Date Admission Date: June 21, 2023 Results & Data Results & Data Vital Signs (Past 12 Hours) Vital Signs Temp Pulse Resp BP Pulse Ox O2 Del Method 06/24/23 07:34 37.0 C 66 16 145/70 H 97 Room Air 06/23/23 19:53 36.7 C 69 16 152/70 H 96 Room Air
[2023-06-24] MEDS: METOPROLOL TARTRATE 50 MG TAB PO SCH (08:00)
[2023-06-24] MEDS: amLODIPine BESYLATE 5 MG TAB PO SCH (08:00)
[2023-06-24] MEDS: ENOXAPARIN INJ 40 MG/0.4 ML SYR SQ SCH (08:01)
[2023-06-24] MEDS: CIPROFLOXACIN / D5W 400 MG/200 ML BAG IV SCH (08:02)
[2023-06-24 08:18] LABS: Hematocrit (blood only) 36.7 % (42.0-52.0); Hemoglobin 13.2 g/dl (14.0-18.0); Mean Corpuscular Hemoglobin 32.6 pg (25.0-34.0); Mean Corpuscular Volume 90.6 fL (80.0-100.0); Mean Platelet Volume 10.4 fL (9.4-12.4); Platelet Count 170 K/uL (130-400); RDW Coefficient of Variation 11.9 % (11.5-14.5); RDW Standard Deviation 39.3 fL (36.4-46.3); Red Blood Count 4.05 M/uL (4.70-6.10); White Blood Count 6.17 K/ul (4.8-10.8)
[2023-06-24 08:35] LABS: BUN Creatinine Ratio 13.3 (10-20); Calcium 8.9 mg/dl (8.6-10.3); Creatinine Clr Calc Pharmacy 69.1 ml/min; Est GFR (African American) 89.5 ml/min; Est GFR (Non-African American) 77.3 ml/min
--- NOTE | 2023-06-24 08:54 | Surgery Progress Note ---
Date of Service June 24, 2023 Assessment & Plan (1) Diverticulitis of intestine with perforation and abscess: Plan: Patient here with diverticulitis and abscess WBC remains normal at 6 and he is afebrile He denies any abdominal pain, + flatus, + BM yesterday. no n/v Tolerating fulls, will advance to low fiber May be discharged to home today from our standpoint on a low fiber diet for the next couple of weeks. abx course total 2wks, may transition to po for home Admission and Anticipated Discharge Date Admission Date: June 21, 2023 Subjective Patient feeling well. Tolerating full liquids without nausea/vomiting or worsening pain. + BM yesterday. Physical Exam Physical Exam: awake/alert, no distress Respiratory: normal respiratory effort Gastrointestinal (Abdomen): Percussion/Palpation: abdomen soft; abdomen nontender Results & Data Vital Signs (Past 12 Hours) Vital Signs Temp Pulse Resp BP Pulse Ox O2 Del Method 06/24/23 07:34 37.0 C 66 16 145/70 H 97 Room Air PG Care Time/CCT Total # of Minutes Spent Total Time Spent with Patient: Total time spent is greater than 50% in coordination of care (as documented) at patient's floor/unit and/or counseling patient: Coding Level of Care Code 64388 SUB INP/OBS CARE 12/03MIN Diagnoses Diverticulitis of intestine with perforation and abscess K57.80
--- NOTE | 2023-06-24 09:05 | Discharge Summary ---
Date of Service June 24, 2023 Admission HPI Per Admitting Provider Kristian Florence is a 72yo male with history of HTN, HLP, HCV s/p treatment, GERD and CAD presenting with LLQ abdominal pain. Patient has known diverticulosis - has never had a diverticular bleed or diverticulitis to his knowledge. He presents to the ER this evening with complaint of LLQ abdominal pain ongoing x 8 days. The pain is severe, worse with movement and trying to have a bowel movement. Has acutely worsened over the last 2 days. Patient reports constipation - no BM x 8 days as well as nausea and some chills. He did have some bright red blood on the toilet paper today after attempting a manual disimpaction. He denies fever, vomiting, melena. No additional complaints at this time - patient denies chest pain, cough or SOB In the ER he is afebrile, HD stable and nontoxic in appearance. 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 Recommended high fiber diet, Miralax 17gm daily and followup colonoscopy in 2 years. ER Course: NSS x 2L Morphine 4mg IV x 3 Zofran 4mg IV CIprofloxacin 400mg IV Flagyl 500mg IV Admission Exam Per Admitting Provider General: patient resting comfortably, NAD, non-toxic in appearance, AA&O x 4 Skin: warm, dry, intact, no rashes or lesions HEENT: NC/AT, PERRL, EOMI, anicteric sclera, conjunctiva without injection, external ear normal to inspection and nontender, nares patent, moist mucus membranes, dentition intact, no oropharyngeal lesions, neck supple, trachea midline, no LAD, no thyromegaly, no JVD Heart: +S1/S2, regular, no m/r/g Lungs: equal air entry bilaterally, no rales/rhonchi/wheezes Abd: +BS, soft, ND, tenderness in the LLQ with some voluntary guarding, no masses/organomegaly/ascites Ext: warm, 2+ pulses in UE/LE bilaterally, no clubbing/cyanosis or edema Neuro: nonfocal, patient AA&O x 4, speech intact, no facial droop, moving all extremities on command with equal strength 5/5 Principal Diagnosis Diverticulitis of the intestine with perforation and abscess Discharge Exam Constitutional: well-appearing, no acute distress HEENT: NCAT, no conjunctival injection CV: regular rhythm, no murmur appreciated, extremities well-perfused, no LE edema Resp: CTABL, no wheezes/rales/rhonchi appreciated, no increased work of breathing GI: soft, nondistended, nontender, BS normoactive MSK: no gross deformities appreciated Skin: warm, dry, no rash appreciated Neuro: alert, oriented, no focal neurologic deficit appreciated Discharge Data Allergies Allergy/AdvReac Type Severity Reaction Status Date / Time Penicillins Allergy Intermediate Hives Verified 01/23/23 10:32 ibuprofen AdvReac Unknown HAS LIVER Verified 01/23/23 10:32 DAMAGE--AVOIDS THIS MED. Consultations 06/21/23 18:47 Consult General Surgery Routine 06/21/23 19:19 ED Decision to Admit Stat Procedures Performed Labs 06/21/23 06/21/23 06/21/23 16:04 16:04 16:04 WBC 15.60 H RBC 4.36 L Hgb 14.6 Hct 39.9 L MCV 91.5 MCH 33.5 MCHC 36.6 H RDW Std Deviation 40.2 RDW Coeff of Mya 12.0 Plt Count 194 MPV 10.4 Immature Gran % (Auto) 0.4 Neut % (Auto) 84.2 Lymph % (Auto) 8.3 [place] % (Auto) 6.5 Eos % (Auto) 0.3 Baso % (Auto) 0.3 Neut # (Auto) 13.12 H Lymph # (Auto) 1.30 [place] # (Auto) 1.02 H Eos # (Auto) 0.05 Baso # (Auto) 0.04 Immature Gran # (Auto) 0.07 PT 11.0 INR 1.0 Sodium 135 L Potassium 3.9 Chloride 103 Carbon Dioxide 25 Anion Gap 7 BUN 15 Creatinine 1.00 Est Cr Clr Drug Dosing 67.8 Est GFR ( Amer) 87.4 Est GFR (Non-Af Amer) 75.4 BUN/Creatinine Ratio 15.0 Glucose 116 H Calcium 9.4 Total Bilirubin 0.8 AST 25 ALT 30 Alkaline Phosphatase 84 Troponin I High Sens 22.0 H Total Protein 7.7 Albumin 4.0 Globulin 3.7 Albumin/Globulin Ratio 1.1 Lipase 4 L Urine Color Urine Appearance Urine pH Ur Specific [place] Urine Protein Urine Glucose (UA) Urine Ketones Urine Blood Urine Nitrite Urine Bilirubin Urine Urobilinogen Ur Leukocyte Esterase 06/21/23 06/21/23 06/22/23 18:38 19:03 03:29 WBC 10.42 RBC 3.92 L Hgb 13.2 L Hct 35.7 L MCV 91.1 MCH 33.7 MCHC 37.0 H RDW Std Deviation 39.8 RDW Coeff of Mya 12.1 Plt Count 165 MPV 10.5 Immature Gran % (Auto) Neut % (Auto) Lymph % (Auto) [place] % (Auto) Eos % (Auto) Baso % (Auto) Neut # (Auto) Lymph # (Auto) [place] # (Auto) Eos # (Auto) Baso # (Auto) Immature Gran # (Auto) PT INR Sodium Potassium Chloride Carbon Dioxide Anion Gap BUN Creatinine Est Cr Clr Drug Dosing Est GFR ( Amer) Est GFR (Non-Af Amer) BUN/Creatinine Ratio Glucose Calcium Total Bilirubin AST ALT Alkaline Phosphatase Troponin I High Sens 17.9 D Total Protein Albumin Globulin Albumin/Globulin Ratio Lipase Urine Color Yellow Urine Appearance Clear Urine pH 5.5 Ur Specific [place] 1.042 H Urine Protein Negative Urine Glucose (UA) Negative Urine Ketones Negative Urine Blood Negative Urine Nitrite Negative Urine Bilirubin Negative Urine Urobilinogen Negative Ur Leukocyte Esterase Negative 06/22/23 06/23/23 06/23/23 03:29 06:58 06:58 WBC 6.44 RBC 3.86 L Hgb 12.6 L Hct 34.6 L MCV 89.6 MCH 32.6 MCHC 36.4 H RDW Std Deviation 39.0 RDW Coeff of Mya 12.0 Plt Count 163 MPV 10.4 Immature Gran % (Auto) Neut % (Auto) Lymph % (Auto) [place] % (Auto) Eos % (Auto) Baso % (Auto) Neut # (Auto) Lymph # (Auto) [place] # (Auto) Eos # (Auto) Baso # (Auto) Immature Gran # (Auto) PT INR Sodium 136 137 Potassium 4.2 3.9 Chloride 105 104 Carbon Dioxide 27 26 Anion Gap 4 7 BUN 13 14 Creatinine 0.95 1.01 Est Cr Clr Drug Dosing 71.3 67.1 Est GFR ( Amer) 93.0 86.3 Est GFR (Non-Af Amer) 80.2 74.5 BUN/Creatinine Ratio 13.7 13.9 Glucose 113 H 102 H Calcium 8.6 8.8 Total Bilirubin AST ALT Alkaline Phosphatase Troponin I High Sens Total Protein Albumin Globulin Albumin/Globulin Ratio Lipase Urine Color Urine Appearance Urine pH Ur Specific [place] Urine Protein Urine Glucose (UA) Urine Ketones Urine Blood Urine Nitrite Urine Bilirubin Urine Urobilinogen Ur Leukocyte Esterase 06/24/23 06/24/23 07:33 07:33 WBC 6.17 RBC 4.05 L Hgb 13.2 L Hct 36.7 L MCV 90.6 MCH 32.6 MCHC 36.0 RDW Std Deviation 39.3 RDW Coeff of Mya 11.9 Plt Count 170 MPV 10.4 Immature Gran % (Auto) Neut % (Auto) Lymph % (Auto) [place] % (Auto) Eos % (Auto) Baso % (Auto) Neut # (Auto) Lymph # (Auto) [place] # (Auto) Eos # (Auto) Baso # (Auto) Immature Gran # (Auto) PT INR Sodium 138 Potassium 4.0 Chloride 105 Carbon Dioxide 28 Anion Gap 5 BUN 13 Creatinine 0.98 Est Cr Clr Drug Dosing 69.1 Est GFR ( Amer) 89.5 Est GFR (Non-Af Amer) 77.3 BUN/Creatinine Ratio 13.3 Glucose 113 H Calcium 8.9 Total Bilirubin AST ALT Alkaline Phosphatase Troponin I High Sens Total Protein Albumin Globulin Albumin/Globulin Ratio Lipase Urine Color Urine Appearance Urine pH Ur Specific [place] Urine Protein Urine Glucose (UA) Urine Ketones Urine Blood Urine Nitrite Urine Bilirubin Urine Urobilinogen Ur Leukocyte Esterase Abdomen/Pelvis CT 06/21/23 15:38 CT abd pelvis IV con only CLINICAL HISTORY: LLQ pain, constipation TECHNIQUE: Helical axial images of the abdomen and pelvis were obtained and displayed. Automated dose lowering techniques and/or adjustment according to patient size were utilized for this exam. This exam was performed with intravenous contrast. CT DOSE: 977.74 mGy.cm COMPARISON: Comparison is made to CT abdomen pelvis 10/02/2021 FINDINGS: Lower chest: No acute abnormality. Liver: Unremarkable. No focal lesions are seen. Gallbladder and biliary tree: Cholelithiasis is seen without evidence of cholecystitis. No intra- or extrahepatic biliary ductal dilation. Pancreas: Unremarkable, no focal lesions. Spleen: Unremarkable. Adrenals: Unremarkable. Kidneys and ureters: Unremarkable. Bladder: Limited evaluation due to underdistention. Reproductive organs: Unremarkable. Bowel: Numerous diverticula are seen in the sigmoid colon. There is prominent wall thickening and surrounding fat stranding. There is an adjacent fluid collection. Lymph nodes Retroperitoneal: Unremarkable. Pelvic: Unremarkable. Mesenteric: Unremarkable. Peritoneum: Fluid collection is seen adjacent to the sigmoid colon extending well outside the colonic contours, with partial enhancing baugh. No distant pneumoperitoneum is seen. Vessels: Atherosclerotic calcifications are seen. Abdominal wall: A fat-containing umbilical hernia is seen. Bones: Compression deformity of T12 is new from prior exam. IMPRESSION: Findings are compatible with perforated diverticulitis with early abscess formation. No distant air is seen. ACT 112: Negative or not required by law. Electronically signed by: Steven Higginbotham M.D. 06/21/2023 5:19 PM Ordered Studies 06/21/23 15:38 CT abd pelvis IV con only Stat Hospital Course (1) Diverticulitis of intestine with perforation and abscess: (2) Essential hypertension: (3) Atherosclerosis of aorta: Plan 72yo male with known diverticulosis presenting with 8 days of abdominal pain, acute worsening over the last 2 days. Constipation, nausea and chills. Found to have perforated diverticulitis with early abscess formation. No distant air is seen. Patient is afebrile, hemodynamically stable, and nontoxic in appearance. Abdomen is soft and nondistended, left lower quadrant tenderness. Diverticulitis of intestine with perforation and abscess -Patient remains afebrile and leukocytosis resolved on 06/22. WBC of 6.4 on 06/23. -IV antibiotics with Ciprofloxacin 400mg IV BID and Flagyl 500mg IV q 8 -Status post LR at 125mL/hr x 2L -N.p.o. was able to tolerate diet. Should continue with a low fiber diet for the next couple weeks. -General surgery consulted, no emergent surgery needed at this time. -Transition from IV antibiotics to oral at time of discharge. Should take Cipro 500 mg twice a day and metronidazole 500 mg 3 times a day for the next 2 weeks. She will follow-up with PCP within 1 week of discharge. - Colonoscopy should be done in approximately 2 to 3 months once patient heals from diverticulitis and perforation. Essential hypertension -Blood pressure mildly elevated -Pain control -Continue metoprolol 50mg po BID and amlodipine 5mg po daily Atherosclerosis of aorta -Patient denies chest pain -Hold ASA 325mg daily for now. Was restarted at time of discharge. Total Time Total Time Spent Total Time Spent (In Minutes): <30 Discharge Plan Discharge Items Patient Disposition: Home - Self-Care Reason For Visit: ABDOMINAL PAIN Discharge Diagnosis: Diverticulitis of intestine with perforation and abscess Activity: Resume your previous activity Non-emergency contact: Primary Care Provider Call non-emergency contact if: you have any medication questions, your pain is unusual for you and your temperature is above 101.5 Follow-up/Referrals: Otto Allen DO [Surgeon] - 07/08/23 9:00 am () Kendall Piedra CRNP [Primary Care Provider] - 06/30/23 2:00 pm () Diet: Low Fiber Addtl Attending Provider Instructions: You were admitted to the hospital for diverticulitis with perforation and abscess. You were treated with antibitoics and got better. A discharge summary will be sent to your primary care physician to ensure continuity of care. Please bring this discharge summary with you to your next office appointment so that your provider can review it at that time. Follow-up appointments: * Make a follow-up appointment with your PCP within the next week. It is very important that you follow up with them shortly after discharge from the hospital. * Make a follow-up appointment with surgery in the next 2 weeks. Is very important that you follow-up with them shortly after discharge from the hospital. * Keep all your follow-up appointments as already scheduled. If you cannot make an appointment, notify your provider. Medications: Your medication list has been reviewed and reconciled upon discharge to ensure accuracy and continuity of care. An updated list of all your medications is included with your hospital discharge paperwork. Please review this list closely, and make note of any changes. * We sent a new medication called ciprofloxacin to your pharmacy. Take ciprofloxacin (500mg) twice a day for 14 days. * We sent a new medication called metronidazole to your pharmacy. Take metronidazole (500mg) three times a day for 14 days. * You should continue on a low fiber diet for the next couple weeks. Should follow-up with PCP. * If you have any issues filling these prescriptions, please call [phone] and ask to leave a message for Dr. Garcia. * Take your medications as instructed; do not skip a dose of your medicines. Make sure all of your doctors know every medicine you are taking (including [id number] medicines, vitamins, and supplements). Call your primary care provider before taking any new medicines (including over- the-counter medicines, vitamins, and supplements), because some of these may interact with your current medications, or may make your symptoms worse. Tell your primary care provider if you cannot afford your medications. CONTACT YOUR PRIMARY CARE PROVIDER if you experience any of the following: * Worsening of symptoms * Fever, chills, or fatigue * Difficulty following your treatment plan, or difficulty taking medications CALL 911 OR GO TO THE EMERGENCY DEPARTMENT if you experience any of the following: * Sudden, severe abdominal pain or nausea/vomiting * Severe chest pain, or chest pain that radiates (moves) to your jaw or arm * Sudden, severe shortness of breath or difficulty breathing Thank you for allowing us to participate in your care. Pending Studies at Discharge: No Stand-Alone Forms: My [facility] [place], Smoking Cessation Medications and DC Order Prescriptions: New ciprofloxacin HCl 500 mg tablet 500 mg PO BID 14 Days Qty: 28 0RF metronidazole 500 mg tablet 500 mg PO TID 14 Days Qty: 42 0RF Continued amlodipine 5 mg tablet 5 mg PO DAILY Qty: 90 3RF aspirin 81 mg tablet,delayed release (DR/EC) 325 mg PO DAILY metoprolol tartrate 50 mg tablet 50 mg PO BID Discharge Orders: Discharge Order (Routine); Ordered 06/24/23 Ordered By: John Paul Garcia Admission Data Admit Date/Time: 06/21/23 19:55 Attending Provider: Ludwig Winslow Admit Provider: Rosita Mcclelland Primary Care Provider: Kendall Piedra Other Providers: Otto Allen ; Rosita Mcclelland Other Interventions: Discharge Summary Assessment (RN) Last Done: 06/24/23 10:34 Supervising Physician Co-Signing Physician Notes I personally examined the patient and verified all ulloa points of history and exam, discussed case, and agree with decision making with Dr Garcia feels good pain controlled wants to go home surgery OK w DC vitals noted nad heent nc at mmm breathing unlabored no accessory muscles good effort skin no rashes no pallor or icterus diverticulitis/microperforation/abscess - PO abx, outpt f/u (PCP next week, GI ~2months for colo, surgery if any worsening/failure to improve) DVT proph - lovenox Resident Activity Tracking Resident Involvement: Resident Care Provided Care Provided: Adult [facility] Medicine
--- NOTE | 2023-06-24 13:27 | Billing Data ---
Date of Service June 24, 2023 Coding Level of Care Code 87664 IN/OBS DISCH 30 MIN/LESS
[2023-06-24] MEDS ORDERED: metroNIDAZOLE 500 MG TAB PO SCH (14:00)
[2023-06-24] MEDS ORDERED: CIPROFLOXACIN 500 MG TAB PO SCH (21:00)
--- NOTE | 2023-06-26 14:27 | Coding Query ---
CODING QUERY To promote full compliance with coding requirements relating to patient care, provider participation is requested in all cases of lumber cutter uncertainty. Please assist us with the question(s) below: Coding Question(s): There is documentation on the Surgery Consultation, under Diverticulitis of large intestine, of, "I also discussed with the patient that if it appears that he has a worsening intra-abdominal abscess consideration be given to having this drained percutaneously by our interventional radiology colleagues. It is yet to be determined if this will be necessary". There is not other documentation in the record of Intra-abdominal Abscess. Please specify below, regarding Intra-abdominal Abscess. ( x ) Intra-abdominal Abscess was monitored/treated ( ) No Intra-abdominal Abscess was monitored/treated ( ) Other: Please Specify Physician's Response(s): Thank you Akilah Espinosa Principal Diagnosis: "that condition established after study, to be chiefly responsible for occasioning the admission of the patient to the hospital for care." Co-Existing Principal Diagnosis: "when two or more diagnoses equally meet the criteria for principal diagnosis as determined by the circumstances of admission, diagnostic work up, and/or therapy provided, and the Alphabetic Index, Tabular List, or another coding guideline does not provide sequencing direction, any one of the diagnoses may be sequenced first." "When the physician has documented what appears to be a current diagnosis in the body of the record, but has not included the diagnosis in the final diagnostic statement, the physician should be asked whether the diagnosis should be added." (Source [facility] 2 QTR90. p3-4) [place]
== END 2023-06-24 11:14 | disposition home or self-care (01) | DRG 391 ==
LOC: ED 15:21 → SUATTDRO 19:55 → EDINP 19:55 → 2N 22:27 → 3W 06-23 11:31